=== PATIENT | male | born 1970 | race Caucasian/White ===

== ENCOUNTER 2018-09-22 13:21 | Emergency (ER) | payer BC ==
[2018-09-22] MEDS ORDERED: Benzonatate 100 MG CAP ONE (14:12)
[2018-09-22] MEDS ORDERED: Promethazine 25 MG TAB ONE (14:12)
--- NOTE | 2018-09-22 14:38 | RAD ---
CHEST PA AND LATERAL: HISTORY: A 48-year-old male with a history of cough ad congestion for 5 days. FINDINGS: The heart size is normal. The lungs are clear. No pneumonia, edema, or pleural effusion. Small gra nuloma calcification on the right. Minimal postsurgical changes at the right apex. IMPRESSION: No acute intrathoracic disease. No evidence for pneumonia. POS: [facility]
== END 2018-09-22 14:55 | disposition home or self-care (01) ==
LOC: NAV ERS 13:21
DX: R05 Cough (principal); F41.9 Anxiety disorder, unspecified; F17.220 Nicotine dependence, chewing tobacco, uncomplicated; Z79.899 Other long term (current) drug therapy
CPT/HCPCS: 71046